=== PATIENT | female | born 1945 | race Asian ===

== ENCOUNTER → 2016-07-13 | Outpatient (CLI) | payer MEDICARE, OTHER ==
[~2016-07-13] MED LIST: ASPI81TA2 PO; CLIN-78 PO; OMEP20
[2016-07-13 11:36] LABS: ALANINE AMINOTRANSFERASE 27 U/L (12-78); ALBUMIN 3.4 g/dL (3.4-5.0); ANION GAP 8 mmol/L (8-16); ASPARTATE AMINOTRANSFERASE 30 U/L (15-37); BILIRUBIN,TOTAL 0.3 mg/dL (0.1-1.0); CALCIUM, TOTAL 8.8 mg/dL (8.8-10.5); CARBON DIOXIDE 29 mmol/L (22-29); CHLORIDE 105 mmol/L (98-107); CREATININE 0.89 mg/dL (0.60-1.30); GLOMERULAR FILTR. RATE CALC > 60 mL/min (>60); POTASSIUM 4.2 mmol/L (3.5-5.1); SODIUM SERUM 142 mmol/L (136-145); TOTAL PROTEIN, SERUM 7.4 g/dL (6.4-8.2); UREA NITROGEN, BLOOD 15 mg/dL (7-18)
== END | disposition home or self-care (01) ==
LOC: LABPV 08:21
PROVIDERS: ATTEND Internal Medicine Cardiovascular Disease
DX: I11.0 Hypertensive heart disease with heart failure (principal); I50.9 Heart failure, unspecified

== ENCOUNTER → 2016-09-18 | Outpatient (CLI) | payer MEDICARE, OTHER ==
[2016-09-18 16:30] LABS: CALCIUM, TOTAL 8.8 mg/dL (8.8-10.5); CREATININE 0.93 mg/dL (0.60-1.30); POTASSIUM 4.5 mmol/L (3.5-5.1)
== END | disposition home or self-care (01) ==
LOC: LABPV 14:52
PROVIDERS: ATTEND Internal Medicine Cardiovascular Disease
DX: I11.0 Hypertensive heart disease with heart failure (principal); I50.9 Heart failure, unspecified; E11.8 Type 2 diabetes mellitus with unspecified complications

== ENCOUNTER 2017-01-14 15:58 | Inpatient (IN) | payer MEDICARE, OTHER ==
[~2017-01-14] VITALS: Ht 154.9 cm; Wt 88.1 kg
[2017-01-14] MEDS ORDERED: SODIUM CHLORIDE 0.9% 100 ML ONE (16:04)
[2017-01-14] MEDS ORDERED: IOVERSOL 350 MG/ML 100 ML VIAL ONE (16:04)
[2017-01-14 16:21] LABS: ANION GAP 10 mmol/L (8-16); CALCIUM, TOTAL 8.7 mg/dL (8.8-10.5); CARBON DIOXIDE 24 mmol/L (22-29); CHLORIDE 104 mmol/L (98-107); CREATININE 0.96 mg/dL (0.60-1.30); GLOMERULAR FILTR. RATE CALC 57 mL/min (>60); POTASSIUM 3.5 mmol/L (3.5-5.1); SODIUM SERUM 138 mmol/L (136-145); UREA NITROGEN, BLOOD 17 mg/dL (7-18)
[2017-01-14 16:22] LABS: BASOPHILS % (AUTO) 0.3 % (0.0-2.0); HEMATOCRIT 40.4 % (36-46); HEMOGLOBIN 13.1 g/dL (12.0-16.0); LYMPHOCYTES # (AUTO) 4.4 K/uL (1.0-4.8); LYMPHOCYTES % (AUTO) 53.5 % (22.0-44.0); MEAN CORPUSCULAR HEMOGLOBIN 26.6 pg (26.0-34.0); MEAN CORPUSCULAR HGB CONC 32.4 G/dL (31.0-37.0); MEAN CORPUSCULAR VOLUME 82 fL (80-100); MONOCYTES # (AUTO) 0.6 K/uL (0.1-1.0); MONOCYTES % (AUTO) 6.9 % (2.0-9.0); NEUTROPHILS # (AUTO) 3.1 K/uL (1.8-7.7); NEUTROPHILS % (AUTO) 38.3 % (40.0-70.0); PLATELET COUNT (AUTO) 206 K/uL (150-450); RED BLOOD CELL COUNT(AUTO) 4.91 MIL/uL (4.00-5.20); RED CELL DISTRIBUTION WIDTH 14.2 % (11.5-14.5); WHITE BLOOD COUNT (AUTO) 8.2 K/uL (4.5-11.0)
[2017-01-14 16:26] LABS: PROTHROMBIN TIME 10.5 SEC (9.4-11.6)
[2017-01-14 16:45] LABS: ALANINE AMINOTRANSFERASE 16 U/L (12-78); ALBUMIN 3.6 g/dL (3.4-5.0); ASPARTATE AMINOTRANSFERASE 20 U/L (15-37); BILIRUBIN,TOTAL 0.5 mg/dL (0.1-1.0); CREATINE KINASE MB 0.9 ng/mL (0-5); CREATINE KINASE, TOTAL 117 U/L (26-192); TOTAL PROTEIN, SERUM 7.6 g/dL (6.4-8.2)
[2017-01-14] MEDS ORDERED: ALTEPLASE PER STROKE PROTOCOL CLINICAL ONE ×2 (17:00)
[2017-01-14] MEDS ORDERED: ALTEPLASE 9 MG in WATER FOR INJECTION,STERILE 9 ML IV ONE (17:30)
[2017-01-14] MEDS ORDERED: ALTEPLASE 81 MG in WATER FOR INJECTION,STERILE 81 ML IV ONE (17:30)
[2017-01-14 17:45] LABS: ADD UA MICROSCOPIC NO; APPEARANCE,URINE CLEAR (CLEAR); GLUCOSE, URINE (UA) NEGATIVE (NEGATIVE); KETONES,URINE NEGATIVE (NEGATIVE); LEUKOCYTE ESTERASE ,URINE NEGATIVE (NEGATIVE); OCCULT BLOOD,URINE NEGATIVE (NEGATIVE); PROTEIN,URINE NEGATIVE (NEGATIVE)
[2017-01-14] MEDS ORDERED: ONDANSETRON HCL 4 MG/2 ML VIAL IVP PRN ×2 (18:30→23:30)
[2017-01-14] MEDS ORDERED: 0.9% SODIUM CHLORIDE 10 ML SYRINGE IVP PRN (18:30)
[2017-01-14 20:00] VITALS: BP 183/99
[2017-01-14] MEDS ORDERED: HydrALAZINE HCL 20 MG/ML VIAL IVP PRN (21:15)
[2017-01-14] MEDS ORDERED: POTA8CAP10 PO (21:31)
[2017-01-14] MEDS ORDERED: ASPI81TA42 PO (21:31)
[2017-01-14] MEDS ORDERED: AMLO5TAB66 PO (21:31)
[2017-01-14] MEDS ORDERED: FURO40TA5 PO (21:31)
[2017-01-14] MEDS ORDERED: LOSA25TA21 PO (21:31)
[2017-01-14] MEDS ORDERED: ATOR20TA65 PO (21:31)
[2017-01-14] MEDS ORDERED: ALEN70TA14 PO (21:31)
[2017-01-14] MEDS ORDERED: ROSU10TA25 PO (21:31)
[2017-01-14] MEDS ORDERED: ACETAMINOPHEN 325 MG TABLET PO PRN (22:45)
[2017-01-14] MEDS ORDERED: BISACODYL 10 MG RECTAL RECTAL SUPPOSITORY PR PRN (23:30)
[2017-01-14] MEDS ORDERED: IPRATROPIUM BROMIDE 0.5 MG/2.5 ML NEB SOLUTION NEB PRN (23:30)
[2017-01-14] MEDS ORDERED: MAGNESIUM HYDROXIDE SUSPENSION 30 ML UDCUP PO PRN (23:30)
[2017-01-14] MEDS ORDERED: MORPHINE SULFATE 2 MG/ML SYRINGE IVP PRN (23:30)
[2017-01-14] MEDS ORDERED: ZOLPIDEM TARTRATE 5 MG TABLET PO PRN (23:30)
[2017-01-14] MEDS ORDERED: ALBUTEROL SULFATE 2.5 MG/0.5 ML NEB SOLUTION NEB PRN (23:30)
[2017-01-14] MEDS ORDERED: HYDROCODONE/ACETAMINOPHEN 5-325 MG TABLET PO PRN (23:30)
[2017-01-15] VITALS (7 sets, daily range): BP systolic 114–151; BP diastolic 70–105
[2017-01-15] MEDS: DEXTROSE 5%-0.45% SODIUM CHL 1,000 ML IV SCH ×2 (00:31→20:13)
[2017-01-15 05:03] LABS: BASOPHILS % (AUTO) 0.2 % (0.0-2.0); EOSINOPHILS % (AUTO) 0.5 % (1.0-6.0); HEMATOCRIT 38.7 % (36-46); HEMOGLOBIN 12.7 g/dL (12.0-16.0); LYMPHOCYTES # (AUTO) 2.5 K/uL (1.0-4.8); LYMPHOCYTES % (AUTO) 31.4 % (22.0-44.0); MEAN CORPUSCULAR HEMOGLOBIN 26.8 pg (26.0-34.0); MEAN CORPUSCULAR HGB CONC 32.9 G/dL (31.0-37.0); MEAN CORPUSCULAR VOLUME 81 fL (80-100); MONOCYTES # (AUTO) 0.7 K/uL (0.1-1.0); MONOCYTES % (AUTO) 8.8 % (2.0-9.0); NEUTROPHILS # (AUTO) 4.6 K/uL (1.8-7.7); NEUTROPHILS % (AUTO) 59.1 % (40.0-70.0); PLATELET COUNT (AUTO) 199 K/uL (150-450); RED BLOOD CELL COUNT(AUTO) 4.75 MIL/uL (4.00-5.20); RED CELL DISTRIBUTION WIDTH 14.2 % (11.5-14.5); WHITE BLOOD COUNT (AUTO) 7.8 K/uL (4.5-11.0)
[2017-01-15 05:11] LABS: HEMOGLOBIN A1C 5.8 % (4.5-6.2)
[2017-01-15 05:13] LABS: ALANINE AMINOTRANSFERASE 15 U/L (12-78); ANION GAP 10 mmol/L (8-16); ASPARTATE AMINOTRANSFERASE 19 U/L (15-37); BILIRUBIN,TOTAL 0.6 mg/dL (0.1-1.0); CALCIUM, TOTAL 8.7 mg/dL (8.8-10.5); CARBON DIOXIDE 25 mmol/L (22-29); CHLORIDE 109 mmol/L (98-107); CREATININE 0.89 mg/dL (0.60-1.30); GLOMERULAR FILTR. RATE CALC > 60 mL/min (>60); POTASSIUM 3.1 mmol/L (3.5-5.1); SODIUM SERUM 144 mmol/L (136-145); TOTAL PROTEIN, SERUM 6.6 g/dL (6.4-8.2); UREA NITROGEN, BLOOD 15 mg/dL (7-18)
[2017-01-15] MEDS: DOCUSATE SODIUM 100 MG CAPSULE PO SCH ×2 (07:44→20:13)
[2017-01-15] MEDS: PANTOPRAZOLE SODIUM 40 MG/VIAL IVP SCH (08:05)
[2017-01-15] MEDS: ACETAMINOPHEN 325 MG TABLET PO PRN (20:14)
[2017-01-15] MEDS ORDERED: POTASSIUM CHLORIDE 20 MEQ ER TABLET PO PRN (21:00)
[2017-01-15] MEDS ORDERED: POTASSIUM CHL 10 MEQ/WATER 50 ML IV PRN (21:00)
[2017-01-16] VITALS (7 sets, daily range): BP systolic 112–145; BP diastolic 62–85
[2017-01-16 05:54] LABS: ANION GAP 9 mmol/L (8-16); CALCIUM, TOTAL 8.1 mg/dL (8.8-10.5); CARBON DIOXIDE 25 mmol/L (22-29); CHLORIDE 111 mmol/L (98-107); CREATININE 0.78 mg/dL (0.60-1.30); GLOMERULAR FILTR. RATE CALC > 60 mL/min (>60); POTASSIUM 3.6 mmol/L (3.5-5.1); SODIUM SERUM 145 mmol/L (136-145); UREA NITROGEN, BLOOD 10 mg/dL (7-18)
[2017-01-16] MEDS: DOCUSATE SODIUM 100 MG CAPSULE PO SCH ×2 (08:01→20:56)
[2017-01-16] MEDS: PANTOPRAZOLE SODIUM 40 MG/VIAL IVP SCH (08:22)
[2017-01-16] MEDS: ACETAMINOPHEN 325 MG TABLET PO PRN ×2 (08:32→19:37)
[2017-01-16 16:33] LABS: THYROID STIMULATING HORMONE 1.84 uIU/mL (0.36-3.74)
[2017-01-17 04:38] VITALS: BP 131/68
[2017-01-17 07:31] VITALS: BP 130/54
[2017-01-17] MEDS: ACETAMINOPHEN 325 MG TABLET PO PRN (08:35)
[2017-01-17] MEDS: DOCUSATE SODIUM 100 MG CAPSULE PO SCH (09:00)
[2017-01-17] MEDS: PANTOPRAZOLE SODIUM 40 MG/VIAL IVP SCH (09:24)
[2017-01-17] MEDS ORDERED: DSS100 PO (10:48)
[2017-01-17 11:14] VITALS: BP 136/64
== END 2017-01-17 14:20 | DRG 61 ==
LOC: EMS 15:59 → ICU 18:49 → 5S 01-16 14:42
PROVIDERS: ADMIT Hospitalist; ATTEND Hospitalist
DX: I63.9 Cerebral infarction, unspecified (principal); G93.49 Other encephalopathy; R47.01 Aphasia; I10 Essential (primary) hypertension; E78.5 Hyperlipidemia, unspecified; E87.6 Hypokalemia; K21.9 Gastro-esophageal reflux disease without esophagitis; Z79.82 Long term (current) use of aspirin; Z79.899 Other long term (current) drug therapy
CPT/HCPCS: 37195; 51702; 70450; 70551; 82607; 82746; 83036; 84439; 84443; 87081; 92610; 93005; 93306; 93880; 97116; 97161; 97167; 97530; 97535; 99291; C9113; J0360; J2997; J7050

== ENCOUNTER → 2017-03-27 | Outpatient (CLI) | payer MEDICARE, OTHER ==
[~2017-03-27] MED LIST changes: +ALEN70TA69 PO; +AMLO5TAB66 PO; -ASPI81TA2 PO; +ASPI81TA42 PO; +ATOR20TA65 PO; -CLIN-78 PO; +DSS100 PO; +FURO40TA5 PO; +LOSA25TA21 PO; -OMEP20; +POTA8CAP10 PO; +ROSU10TA35 PO
[2017-03-27 11:06] LABS: BASOPHILS # (AUTO) 0.03 K/uL (0.00-0.20); BASOPHILS % (AUTO) 0.4 % (0.0-2.0); EOSINOPHILS % (AUTO) 1.49 % (1.0-6.0); HEMOGLOBIN 12.8 g/dL (12.0-16.0); LYMPHOCYTES # (AUTO) 2.9 K/uL (1.0-4.8); LYMPHOCYTES % (AUTO) 43.3 % (22.0-44.0); MEAN CORPUSCULAR HEMOGLOBIN 26.7 pg (26.0-34.0); MEAN CORPUSCULAR VOLUME 84 fL (80-100); MONOCYTES # (AUTO) 0.4 K/uL (0.1-1.0); NEUTROPHILS # (AUTO) 3.2 K/uL (1.8-7.7); NEUTROPHILS % (AUTO) 48.8 % (40.0-70.0); PLATELET COUNT (AUTO) 186 K/uL (150-450); RED BLOOD CELL COUNT(AUTO) 4.78 MIL/uL (4.00-5.20); RED CELL DISTRIBUTION WIDTH 14.2 % (11.5-14.5)
[2017-03-27 11:35] LABS: ALBUMIN 3.6 g/dL (3.4-5.0); BILIRUBIN,TOTAL 0.6 mg/dL (0.1-1.0); CHOL/HDL RATIO 2.2 (3.9-5.7); CREATININE 0.93 mg/dL (0.60-1.30); POTASSIUM 4.1 mmol/L (3.5-5.1); TOTAL PROTEIN, SERUM 7.3 g/dL (6.4-8.2)
== END | disposition home or self-care (01) ==
LOC: LABPV 08:28
PROVIDERS: ATTEND Internal Medicine Cardiovascular Disease
DX: I11.0 Hypertensive heart disease with heart failure (principal); I50.9 Heart failure, unspecified; E11.65 Type 2 diabetes mellitus with hyperglycemia; E55.9 Vitamin D deficiency, unspecified

== ENCOUNTER 2021-08-30 23:14 | Inpatient (IN) | payer MEDICARE, OTHER ==
[~2021-08-30] VITALS: Ht 154.9 cm; Wt 93.3 kg
[~2021-08-30 23:14] MED LIST changes: -ALEN70TA69 PO; +ALEN70TA80 PO; +ASPI81TA40 PO; -ASPI81TA42 PO; +LOSA-381 PO; -LOSA25TA21 PO; -POTA8CAP10 PO; +POTA8CAP20 PO; +ROSU10TA27 PO; -ROSU10TA35 PO
[2021-08-31] MEDS ORDERED: LOSA-382 PO (00:13)
[2021-08-31] MEDS ORDERED: HYDR25TA2 PO (00:13)
[2021-08-31 00:14] LABS: BASOPHILS % (AUTO) 0.4 % (0.0-2.0); HEMATOCRIT 41.1 % (36-46); HEMOGLOBIN 13.6 g/dL (12.0-16.0); LYMPHOCYTES # (AUTO) 2.4 K/uL (1.0-4.8); LYMPHOCYTES % (AUTO) 22.5 % (22.0-44.0); MEAN CORPUSCULAR HEMOGLOBIN 27.3 pg (26.0-34.0); MEAN CORPUSCULAR VOLUME 83 fL (80-100); MONOCYTES % (AUTO) 9.6 % (2.0-9.0); NEUTROPHILS % (AUTO) 66.5 % (40.0-70.0); PLATELET COUNT (AUTO) 197 K/uL (150-450); RED BLOOD CELL COUNT(AUTO) 4.98 MIL/uL (4.00-5.20); RED CELL DISTRIBUTION WIDTH 13.8 % (11.5-14.5)
[2021-08-31 00:33] LABS: PROTHROMBIN TIME 10.5 SEC (9.4-11.6)
[2021-08-31 00:51] LABS: ALBUMIN 3.2 g/dL (3.4-5.0); BILIRUBIN,TOTAL 1.1 mg/dL (0.1-1.0); CALCIUM, TOTAL 9.1 mg/dL (8.8-10.5); MAGNESIUM 2.1 mg/dL (1.80-2.40); PHOSPHORUS 4.2 mg/dL (2.5-4.9); TOTAL PROTEIN, SERUM 7.6 g/dL (6.4-8.2)
[2021-08-31 00:59] LABS: POTASSIUM 2.5 mmol/L (3.5-5.1)
[2021-08-31] MEDS ORDERED: SODIUM CHLORIDE 0.9% 100 ML ONE (01:02)
[2021-08-31] MEDS ORDERED: IOHEXOL 350 MG/ML 150 ML VIAL ONE (01:03)
[2021-08-31] MEDS: POTASSIUM CHL 10 MEQ/WATER 50 ML IV SCH ×4 (01:14→04:26)
[2021-08-31] MEDS ORDERED: ONDANSETRON HCL 4 MG/2 ML VIAL IVP PRN (01:30)
[2021-08-31] MEDS ORDERED: ACETAMINOPHEN 325 MG TABLET PO PRN (01:30)
[2021-08-31] MEDS ORDERED: POTASSIUM CHLORIDE 10% 40 MEQ/30 ML LIQUID UDCUP PO ONE (02:00)
[2021-08-31 02:26] LABS: COVID AG,FIA SOURCE NASAL SWAB
[2021-08-31] MEDS ORDERED: HEPARIN SODIUM 25000 UNITS/D5W 250 ML IV PRN (05:00)
[2021-08-31 05:41] VITALS: BP 124/70
[2021-08-31 07:20] VITALS: BP 134/66
[2021-08-31 07:38] LABS: CALCIUM, TOTAL 8.7 mg/dL (8.8-10.5); CREATININE 0.92 mg/dL (0.60-1.30); POTASSIUM 4.4 mmol/L (3.5-5.1)
[2021-08-31 07:42] LABS: ALBUMIN 2.7 g/dL (3.4-5.0); BILIRUBIN,TOTAL 0.9 mg/dL (0.1-1.0); TOTAL PROTEIN, SERUM 6.8 g/dL (6.4-8.2)
[2021-08-31] MEDS ORDERED: HEPARIN SODIUM,PORCINE 5,000 UNITS/ML VIAL SQ SCH (08:00)
[2021-08-31] MEDS: ASPIRIN 81 MG DR TABLET PO SCH (08:30)
[2021-08-31] MEDS: AmLODIPine BESYLATE 5 MG TABLET PO SCH (08:31)
[2021-08-31] MEDS: FUROSEMIDE 40 MG TABLET PO SCH (08:31)
[2021-08-31] MEDS ORDERED: ATORVASTATIN CALCIUM 20 MG TABLET PO SCH (09:00)
[2021-08-31 11:18] VITALS: BP 144/49
[2021-08-31] MEDS: DOCUSATE SODIUM 100 MG CAPSULE PO SCH ×2 (12:59→20:03)
[2021-08-31] MEDS: ENOXAPARIN SODIUM 100 MG/ML PF SYRINGE SQ SCH ×2 (12:59→20:03)
[2021-08-31] MEDS: LOSARTAN POTASSIUM 50 MG TABLET PO SCH (13:00)
[2021-08-31] MEDS: HYDROCHLOROTHIAZIDE 25 MG TABLET PO SCH (13:00)
[2021-08-31 16:10] VITALS: BP 114/64
[2021-08-31 20:08] VITALS: BP 102/51
[2021-08-31] MEDS ORDERED: ROSUVASTATIN CALCIUM 10 MG TABLET PO SCH (21:00)
[2021-08-31 21:48] VITALS: BP 128/68
[2021-09-01 04:48] VITALS: BP 119/56
[2021-09-01 07:54] VITALS: BP 123/71
[2021-09-01] MEDS ORDERED: POTASSIUM CHLORIDE 10 MEQ ER TABLET PO SCH (09:00)
[2021-09-01] MEDS: ASPIRIN 81 MG DR TABLET PO SCH (09:01)
[2021-09-01] MEDS: ENOXAPARIN SODIUM 100 MG/ML PF SYRINGE SQ SCH (09:01)
[2021-09-01] MEDS: LOSARTAN POTASSIUM 50 MG TABLET PO SCH (09:03)
[2021-09-01] MEDS: HYDROCHLOROTHIAZIDE 25 MG TABLET PO SCH (09:03)
[2021-09-01] MEDS: FUROSEMIDE 40 MG TABLET PO SCH (09:04)
[2021-09-01] MEDS: DOCUSATE SODIUM 100 MG CAPSULE PO SCH (09:04)
[2021-09-01] MEDS: AmLODIPine BESYLATE 5 MG TABLET PO SCH (09:04)
[2021-09-01] MEDS ORDERED: POTA-92 PO (10:27)
[2021-09-01] MEDS ORDERED: APIX5TAB PO (10:27)
[2021-09-01 16:04] VITALS: BP 121/68
[2021-09-07] MEDS ORDERED: ALENDRONATE SODIUM 70 MG TABLET PO SCH (06:30)
== END 2021-09-01 16:06 | disposition home or self-care (01) | DRG 640 ==
LOC: EMS 23:16 → 5N 08-31 01:00 → 6S 08-31 21:20
PROVIDERS: ADMIT Internal Medicine; ATTEND Internal Medicine
DX: E87.6 Hypokalemia (principal); I26.99 Other pulmonary embolism without acute cor pulmonale; M48.56XA Collapsed vertebra, not elsewhere classified, lumbar region, initial encounter for fracture; I82.432 Acute embolism and thrombosis of left popliteal vein; E87.3 Alkalosis; E78.00 Pure hypercholesterolemia, unspecified; E78.5 Hyperlipidemia, unspecified; Z20.822 Contact with and (suspected) exposure to COVID-19; K21.9 Gastro-esophageal reflux disease without esophagitis; I10 Essential (primary) hypertension; Z79.82 Long term (current) use of aspirin; Z79.01 Long term (current) use of anticoagulants; Z86.73 Personal history of transient ischemic attack (TIA), and cerebral infarction without residual deficits
CPT/HCPCS: 70450; 71045; 71260; 72193; 74160; 80053; 82550; 83735; 83880; 84100; 84484; 85025; 85610; 85730; 93005; 93306; 93970; 99291; J1650; J3480; J7050; Q9967; 36415-L1; 36415-TC